=== PATIENT | female | born 1980 | race Caucasian/White ===

== ENCOUNTER 2017-08-22 14:57 | Emergency (ER) | payer BC, OTHER ==
[2017-08-22] MEDS ORDERED: ONDANSETRON *ODT* 4 MG TABLET SL ONE (15:08)
--- NOTE | 2017-08-22 15:13 | PDOC ---
Rapid Medical Evaluation Time Seen by Provider: 08/22/17 15:06 Medical Evaluation: Allergies Allergy/AdvReac Type Severity Reaction Status Date / Time No Known Drug Allergies Allergy Verified 07/16/16 22:29 08/22/17 15:07 The patient presents with a chief complaint of: Sent by doctor. Hx of ovarian cysts. Had a lot of vaginal bleeding. Feels light headed, fevers, chills. Fever vs bleeding symptoms I have performed a brief in-person evaluation of the pt: Pertinent physical exam findings: afebrile, TTP LLQ, suprapubic region, RLQ I have ordered the following:CBC, CMP, PT/INr, Type and Screen influenza, zofran The patient will proceed to the ED for further evaluation. Discharge Disposition - Referrals Referrals: Carrie Maurice [Primary Care Provider] - - Patient Instructions - Post Discharge Activity
[2017-08-22 15:14] VITALS: BP 137/93; PULSE 79; TEMP 98.5; BMI 21.4
[2017-08-22 15:50] LABS: BASO % 0.2 % (0-2.0); EOS % 0.6 % (0-4.5); HEMATOCRIT 41.1 % (32.4-45.2); HEMOGLOBIN 14.1 GM/dL (10.7-15.3); LYMPH % 15.5 % (8-40); MCH 31.3 pg (25.7-33.7); MCHC 34.4 g/dl (32.0-36.0); MEAN CELL VOLUME 90.9 fl (80-96); MEAN PLT VOLUME 7.8 fl (7.5-11.1); MONO % 7.1 % (3.8-10.2); NEUT % 76.6 % (42.8-82.8); PLATELET COUNT 290 K/MM3 (134-434); RBC 4.52 M/mm3 (3.60-5.2); RDW 12.8 % (11.6-15.6); WHITE BLOOD COUNT 8.4 K/mm3 (4.0-10.0)
[2017-08-22 16:02] LABS: INR 1.18 (0.82-1.09); PROTHROMBIN TIME (PATIENT) 13.3 SEC (9.98-11.88)
[2017-08-22 17:31] LABS: ALBUMIN 3.8 g/dl (3.4-5.0); ANION GAP 9 (8-16); BILIRUBIN,TOTAL 0.4 mg/dL (0.2-1.0); BLOOD UREA NITROGEN 14 mg/dL (7-18); CALCIUM 8.6 mg/dL (8.5-10.1); CHLORIDE 108 mmol/L (98-107); CO2 23 mmol/L (21-32); CREATININE 0.6 mg/dL (0.55-1.02); GLUCOSE,RANDOM 89 mg/dL (74-106); POTASSIUM 4.2 mmol/L (3.5-5.1); SGOT/AST 16 U/L (15-37); SGPT/ALT 61 U/L (12-78); SODIUM 140 mmol/L (136-145); TOT PROT 7.4 g/dl (6.4-8.2)
[2017-08-22 17:33] LABS: ALK PHOS 77 U/L (45-117)
--- NOTE | 2017-08-22 19:35 | PDOC ---
History of Present Illness - General Chief Complaint: Pain, Acute Stated Complaint: SENT BY PCP Time Seen by Provider: 08/22/17 15:06 - History of Present Illness Initial Comments: 08/22/17 19:33 37 yo F with h/o ovarian cysts who arrives from [facility] with abdominal pain. Patient reports onset of sharp, worsening, unremitting, lower abdominal over the past week, now with increased paroxysms of spasmodic, sharp pain. No identifiable triggers or alleviators. LMP 1 1/2 week ago, and a 3 days of profuse vaginal bleeding 1 week ago. Seen by [facility] [employer] physician 4 days ago and underwent transvaginal U/S with no evidence of torsion, but patient with suspected ovarian left cystic rupture based on prior interval study ( 2 months ago). Pt. reports she had option to schedule elective ovarian cystectomy. Endorses nausea without vomiting, lightheadedness, and 2 days of subjective fevers/chills . Denies dysuria, hematuria, flank pain, diarrhea, constipation, BRBPR, CP, SOB. Denies alcohol, tobacco use. PCP Dr. Carrie Maurice. Past History - Past Medical History Allergies/Adverse Reactions: Allergies Allergy/AdvReac Type Severity Reaction Status Date / Time No Known Drug Allergies Allergy Verified 08/22/17 15:07 Home Medications: Ambulatory Orders Celecoxib [Celebrex] 08/22/17 Dicyclomine HCl [Bentyl] 10 mg GT QID PRN #30 capsule 08/22/17 Gabapentin mg PO 08/22/17 Ibuprofen [Motrin -] 600 mg PO TID PRN #30 tablet 08/22/17 Imitrex - 08/22/17 Anemia: Yes Asthma: No Cancer: Yes (ovarian) Cardiac Disorders: No CVA: No COPD: No CHF: No Dementia: No Diabetes: No GI Disorders: No Disorders: No HTN: No Hypercholesterolemia: No Liver Disease: No Seizures: No Thyroid Disease: No - Surgical History Neurologic Surgery: Yes (laminectomy) - Immunization History Td Vaccination: No Immunization Up to Date: Yes - Suicide/Smoking/Psychosocial Hx Smoking Status: No Smoking History: Never smoked Have you smoked in the past 12 months: No Number of Cigarettes Smoked Daily: 0 Information on smoking cessation initiated: No Hx Alcohol Use: No Drug/Substance Use Hx: No Substance Use Type: None Review of Systems - Review of Systems Comments:: 08/22/17 19:34 GENERAL/CONSTITUTIONAL: + fever or chills. No weakness. HEAD, EYES, EARS, NOSE AND THROAT: No change in vision. No ear pain or discharge. No sore throat.- CARDIOVASCULAR: No chest pain or shortness of breath RESPIRATORY: No cough, wheezing, or hemoptysis. GASTROINTESTINAL: + Nausea and abdominal pain . No vomiting, diarrhea or constipation. GENITOURINARY: No dysuria, frequency, or change in urination. MUSCULOSKELETAL: No joint or muscle swelling or pain. No neck or back pain. SKIN: No rash NEUROLOGIC: No headache, vertigo, loss of consciousness, or change in strength/ sensation. ENDOCRINE: No increased thirst. No abnormal weight change HEMATOLOGIC/LYMPHATIC: No anemia, easy bleeding, or history of blood clots. ALLERGIC/IMMUNOLOGIC: No hives or skin allergy. *Physical Exam - Vital Signs Last Vital Signs Temp Pulse Resp BP Pulse Ox 98.5 F 79 16 137/93 99 08/22/17 15:09 08/22/17 15:09 08/22/17 15:09 08/22/17 15:09 08/22/17 15:09 - Physical Exam Comments: 08/22/17 19:34 GENERAL: Awake, alert, and fully oriented, in no acute distress HEAD: No signs of trauma, normocephalic, atraumatic EYES: PERRLA, EOMI, sclera anicteric, conjunctiva clear ENT: Hearing grossly normal, nares patent, oropharynx clear without exudates. Moist mucosa NECK: Normal ROM, supple, no lymphadenopathy, JVD, or masses LUNGS: No distress, speaks full sentences, clear to auscultation bilaterally HEART: Regular rate and rhythm, normal S1 and S2, no murmurs, rubs or gallops, peripheral pulses normal and equal bilaterally. ABDOMEN: Suprpapubic ttp. Neg CVA ttp. Soft, normoactive bowel sounds. No guarding, no rebound. No masses. Neg rigidity. EXTREMITIES : Normal inspection, Normal range of motion, no edema. No clubbing or cyanosis. SKIN: Warm, Dry, normal turgor, no rashes or lesions noted. ED Treatment Course - LABORATORY CBC & Chemistry Diagram: 08/22/17 15:32 08/22/17 15:32 - ADDITIONAL ORDERS Additional order review: Laboratory Results 08/22/17 08/22/17 08/22/17 15:32 15:32 15:32 PT with INR 13.30 H INR 1.18 H Sodium 140 Potassium 4.2 Chloride 108 H Carbon Dioxide 23 Anion Gap 9 BUN 14 Creatinine 0.6 Creat Clearance w eGFR > 60 Random Glucose 89 Calcium 8.6 Total Bilirubin 0.4 AST 16 ALT 61 Alkaline Phosphatase 77 Total Protein 7.4 Albumin 3.8 Beta HCG, Quant < 1.0 Blood Type O POSITIVE Antibody Screen Negative 08/22/17 15:32 Influenza Types A,B Antigen ([facility]) - Preliminary Nasopharyngeal Swab - Preliminary 08/22/17 15:32 RBC 4.52 MCV 90.9 MCHC 34.4 RDW 12.8 MPV 7.8 Neutrophils % 76.6 D Lymphocytes % 15.5 D Monocytes % 7.1 Eosinophils % 0.6 Basophils % 0.2 - Medications Given in the ED: ED Medications Discontinued Medications Generic Name Dose Route Start Last Admin Trade Name Freq PRN Reason Stop Dose Admin Ondansetron HCl 4 mg 08/22/17 15:08 08/22/17 15:32 Zofran Odt - SL 08/22/17 15:09 4 mg ONCE ONE Administration Medical Decision Making - Medical Decision Making 08/22/17 20:08 37 yo F with h/o ovarian cysts who arrives from [facility] acute onset of sharp, worsening, unremitting, lower abdominal over the past week, now with increased paroxysms of spasmodic, sharp pain. No identifiable triggers or alleviators. LMP 1 1/2 week ago, and 3 days of profuse vaginal bleeding 1 week ago. Seen by [facility] physician 4 days ago and underwent transvaginal U/S with no evidence of torsion, but patient with suspected ovarian left cystic rupture based on prior interval study ( 2 months ago). Endorses nausea without vomiting, lightheadedness, and 2 days of subjective fevers/chills . Denies dysuria, hematuria, flank pain, diarrhea, constipation, BRBPR, CP, SOB. Denies alcohol, tobacco use. Physical exam with surpapubic ttp. Neg CVA ttp. Patient HDS. Location of abdominal pain and history consistent with cystitis. Will also consider ovarian torsion given h/o multiple ovarian cysts. DDx: Cysitis, ovarian torsion, appendicitis E CBC, CMP, PT/INr, Type and Screen influenza, zofran ED Course: CBC, CMP: Unremarkable Toradol, IV NS 08/22/17 23:45 CBC, CMP: Unremarkable UA: Neg Transvaginal U/S doppler: No evidence of torsion Pt. pain improved with Hydromorphone 0.5 mg. Stable for d/c with return precautions. Bentyl and Motrin sent to pharmacy. Advised to f/u with [facility]. 0 *DC/Admit/Observation/Transfer Diagnosis at time of Disposition: Ovarian cyst Qualifiers: Laterality: bilateral Qualified Code(s): N83.201 - Unspecified ovarian cyst, right side; N83.202 - Unspecified ovarian cyst, left side; N83.202 - Unspecified ovarian cyst, left side Abdominal pain Qualifiers: Abdominal location: lower abdomen, unspecified Qualified Code(s): R10.30 - Lower abdominal pain, unspecified - Discharge Dispostion Disposition: HOME Condition at time of disposition: Stable Admit: No - Prescriptions Prescriptions: Dicyclomine HCl [Bentyl] 10 mg GT QID PRN #30 capsule PRN Reason: Pain Ibuprofen [Motrin -] 600 mg PO TID PRN #30 tablet PRN Reason: Pain - Referrals Referrals: Carrie Maurice [Primary Care Provider] - - Patient Instructions Printed Discharge Instructions: DI for Ovarian Cyst Additional Instructions: Please return to the emergency department with any new or worsening symptoms or concerns. Please follow up with your [employer] physician within one week. Please take Bentyl and Motrin as prescribed. - Post Discharge Activity - Attestations Physician Attestion: 08/22/17 23:48 I attest to the information provided in this note.
[2017-08-22] MEDS ORDERED: morphine CARPU-JECT 2 MG/1 ML DISP.SYRIN IVPUSH ONE (20:03)
[2017-08-22] MEDS ORDERED: ONDANSETRON 4 MG/2 ML VIAL IVPUSH ONE (20:03)
[2017-08-22] MEDS ORDERED: ONDANSETRON 4 MG/2 ML VIAL ONE (20:16)
[2017-08-22] MEDS ORDERED: SODIUM CHLORIDE 1,000 ML IV STA (20:19)
[2017-08-22] MEDS ORDERED: KETOROLAC TROMETHAMINE 30 MG/1 ML VIAL IVPUSH ONE (20:19)
[2017-08-22] MEDS ORDERED: KETOROLAC TROMETHAMINE 30 MG/1 ML VIAL ONE (20:20)
--- NOTE | 2017-08-22 21:06 | PDOC ---
Attending Attestation - HPI HPI: 08/22/17 21:46 The patient is a 37 year old female with a significant PMH of ovarian cysts who presents to the emergency department after being sent by her PCP for evaluation of 1 week of sharp, unremitting lower abdominal pain and a 3 day episode of vaginal bleeding 1 week ago. Patient also reports subjective fevers and chills with associated lightheadedness and nausea. She denies diarrhea or constipation. She denies dysuria or hematuria. Allergies: NKDA PCP: Dr. Carrie Maurice <Rock Liriano - Last Filed: 08/22/17 21:46> - Resident Resident Name: Levi Ott - ED Attending Attestation I have performed the following: I have examined & evaluated the patient, The case was reviewed & discussed with the resident, I agree w/resident's findings & plan, Exceptions are as noted - Physicial Exam PE: 08/22/17 23:41 *Physical Exam General Appearance: Yes: Appropriately Dressed. No: Apparent Distress, Intoxicated HEENT: positive: EOMI, PATSY, Normal ENT Inspection, Normal Voice, TMs Normal, Pharynx Normal. negative: Pale Conjunctivae, Photophobia, Scleral Icterus (R), Scleral Icterus (L) Neck: positive: Trachea midline, Normal Thyroid, Supple. negative: Tender, Rigid, Carotid bruit, Stridor, Lymphadenopathy (R), Lymphadenopathy (L), Thyromegaly Respiratory/Chest: positive: Lungs Clear, Normal Breath Sounds. negative: Chest Tender, Respiratory Distress, Accessory Muscle Use, Labored Respiration, RES, Crackles, Rales, Rhonchi, Stridor, Wheezing, Dullness Cardiovascular: positive: Regular Rhythm, Regular Rate, S1, S2. negative: Edema , JVD, Murmur, Bradycardia, Tachycardia Vascular Pulses: Dorsalis-Pedis (R): 2+, Doralis-Pedis (L): 2+ Gastrointestinal/Abdominal: positive: Normal Bowel Sounds, Flat, Soft. negative : Tender, Organomegaly, Pulsatile Mass, Increased Bowel Sounds, Decreased BS, Distended, Guarding, Rebound, Hernia, Hepatomegaly, Spleenomegaly Lymphatic: negative: Adenopathy, Tenderness Musculoskeletal: positive: Normal Inspection. negative: CVA Tenderness, Decreased Range of Motion Extremity: positive: Normal Capillary Refill, Normal Inspection, Normal Range of Motion, Pelvis Stable. negative: Tender, Pedal Edema, Swelling, Erythema Integumentary: positive: Normal Color, Dry, Warm. negative: Cyanotic, Erythema , Jaundice, Rash Neurologic: positive: detail technician II-XII NML intact, Fully Oriented, Alert, Normal Mood/ Affect, Motor Strength 5/5. negative: EOM Palsy, Facial Droop, Sensory Deficit - Medical Decision Making 08/22/17 23:42 Pt was treated and released. <Darrian Recinos - Last Filed: 08/22/17 23:43>
[2017-08-22 21:21] LABS: HCG,QUALITATIVE URINE NEGATIVE
[2017-08-22 21:22] LABS: URINE APPEARANCE SLCLOUDY; URINE BILIRUBIN NEGATIVE (NEGATIVE); URINE BLOOD NEGATIVE (NEGATIVE); URINE COLOR AMBER; URINE GLUCOSE (UA) 2+ (NEGATIVE); URINE KETONE NEGATIVE (NEGATIVE); URINE LEUK ESTERASE TRACE (NEGATIVE); URINE NITRITE NEGATIVE (NEGATIVE); URINE PROTEIN 1+ (NEGATIVE); URINE UROBILINOGEN NEGATIVE mg/dL (0.2-1.0)
[2017-08-22 21:26] LABS: EPI CELLS MODERATE /HPF (FEW); URINE BACTERIA MODERATE /hpf (NONE SEEN); URINE HYALINE CAST 2 /lpf; URINE MUCUS MANY
[2017-08-22] MEDS ORDERED: HYDROmorphone HCL CARPU-JECT 1 MG/1 ML DISP.SYRIN IVPUSH ONE (21:42)
[2017-08-22] MEDS ORDERED: HYDROmorphone HCL CARPU-JECT 2 MG/1 ML DISP.SYRIN ONE (21:56)
== END 2017-08-23 00:10 | disposition home or self-care (01) ==
LOC: JER 14:57
PROC: 3E033NZ Introduction of Analgesics, Hypnotics, Sedatives into Peripheral Vein, Percutaneous Approach (ICD-10-PCS; principal; 2017-08-22)
PROC: 3E0333Z Introduction of Anti-inflammatory into Peripheral Vein, Percutaneous Approach (ICD-10-PCS; 2017-08-22)
PROC: 3E033GC Introduction of Other Therapeutic Substance into Peripheral Vein, Percutaneous Approach (ICD-10-PCS; 2017-08-22)
DX: N83.202 Unspecified ovarian cyst, left side (principal); N83.201 Unspecified ovarian cyst, right side
CPT/HCPCS: 36415; 76830-TC; 80053; 81003; 81015; 84702; 84703; 85025; 85610; 86850; 86900; 86901; 87804; 99282-25

== ENCOUNTER 2023-02-02 11:28 | Emergency (ER) | payer OTHER ==
[2023-02-02 11:53] VITALS: TEMP 98.2; BMI 22.3
[2023-02-02] MEDS ORDERED: SODIUM CHLORIDE 1,000 ML IV STA (13:04)
[2023-02-02] MEDS ORDERED: PHENAZOPYRIDINE HCL 100 MG TABLET (FP) PO ONE (13:04)
[2023-02-02] MEDS ORDERED: PHENAZOPYRIDINE HCL 100 MG TABLET (FP) ONE (13:07)
[2023-02-02 13:09] LABS: PH,URINE 7.5 (5.0-8.0); URINE APPEARANCE CLEAR; URINE BILIRUBIN NEGATIVE (NEGATIVE); URINE COLOR YELLOW; URINE GLUCOSE (UA) NEGATIVE (NEGATIVE); URINE KETONE NEGATIVE (NEGATIVE); URINE LEUK ESTERASE NEGATIVE (NEGATIVE); URINE NITRITE NEGATIVE (NEGATIVE); URINE PROTEIN NEGATIVE (NEGATIVE); URINE UROBILINOGEN 0.2 mg/dL (0.2-1.0)
[2023-02-02 13:13] LABS: BASO % 0.8 % (0-2.0); EOS % 6.1 % (0-4.5); HEMATOCRIT 35.1 % (32.4-45.2); HEMOGLOBIN 11.6 GM/dL (10.7-15.3); LYMPH % 27.3 % (8-40); MCH 30.5 pg (25.7-33.7); MCHC 33.2 g/dl (32.0-36.0); MEAN CELL VOLUME 91.9 fl (80-96); MEAN PLT VOLUME 7.9 fl (7.5-11.1); MONO % 8.6 % (3.8-10.2); NEUT % 57.2 % (42.8-82.8); PLATELET COUNT 260 10^3/uL (134-434); RBC 3.82 M/mm3 (3.60-5.2); RDW 13.8 % (11.6-15.6); WHITE BLOOD COUNT 4.9 K/mm3 (4.0-10.0)
[2023-02-02 13:15] LABS: INR 0.98 (0.83-1.09); PROTHROMBIN TIME (PATIENT) 11.4 SEC (9.7-13.0)
[2023-02-02 13:17] LABS: ACTIVATED PTT 33.6 SECONDS (25.2-36.5)
[2023-02-02 13:44] LABS: POTASSIUM 3.9 mmol/L (3.5-5.1)
[2023-02-02 13:46] LABS: BLOOD UREA NITROGEN 15.6 mg/dL (7-18); CALCIUM 9.3 mg/dL (8.5-10.1)
[2023-02-02 13:47] LABS: ALBUMIN 4.2 g/dl (3.4-5.0)
[2023-02-02 13:50] LABS: CREATININE 0.7 mg/dL (0.55-1.3)
[2023-02-02 13:51] LABS: BILIRUBIN,TOTAL 0.2 mg/dL (0.2-1); TOT PROT 7.3 g/dl (6.4-8.2)
[2023-02-02] MEDS ORDERED: ONDANSETRON 4 MG/2 ML VIAL IVPUSH ONE (14:00)
[2023-02-02] MEDS ORDERED: ONDANSETRON 4 MG/2 ML VIAL ONE (14:04)
[2023-02-02] MEDS ORDERED: ACETAMINOPHEN 1000 MG/100 ML BAG IVPB ONE (16:16)
[2023-02-02] MEDS ORDERED: MENTHOL/PHENOL 1 EACH UD MM PRN (16:18)
[2023-02-02] MEDS ORDERED: ACETAMINOPHEN INJECTION 100 ML IVPB ONE (16:30)
[2023-02-02] MEDS ORDERED: BENZOCAINE/MENTH/CETYLPYRD CL 1 EACH LOZENGE MM ONE (16:31)
[2023-02-02] MEDS ORDERED: IBUPROFEN 600 MG TABLET (FP) PO ONE ×2 (17:21→17:29)
[2023-02-02] MEDS ORDERED: FLUCONAZOLE 150 MG TABLET PO ONE ×2 (20:43→20:52)
[2023-02-02] MEDS ORDERED: METOCLOPRAMIDE HCL INJECTION 10 MG/2 ML VIAL IVPB ONE (20:44)
[2023-02-02] MEDS ORDERED: METOCLOPRAMIDE HCL INJECTION 10 MG/2 ML VIAL ONE (20:52)
[2023-02-02 23:10] VITALS: BP 115/72; PULSE 63; RESP 18
[2023-02-02] MEDS ORDERED: PSEUDOEPHEDRINE HCL 60 MG TABLET PO SCH (23:30)
== END 2023-02-03 00:33 | disposition home or self-care (01) ==
LOC: JER 11:28
PROC: 3E033GC Introduction of Other Therapeutic Substance into Peripheral Vein, Percutaneous Approach (ICD-10-PCS; principal; 2023-02-02)
PROC: 3E033GC Introduction of Other Therapeutic Substance into Peripheral Vein, Percutaneous Approach (ICD-10-PCS; 2023-02-02)
PROC: 3E0337Z Introduction of Electrolytic and Water Balance Substance into Peripheral Vein, Percutaneous Approach (ICD-10-PCS; 2023-02-02)
DX: R04.2 Hemoptysis (principal); J01.90 Acute sinusitis, unspecified; R06.02 Shortness of breath; R60.0 Localized edema; R10.32 Left lower quadrant pain; R30.9 Painful micturition, unspecified; R35.0 Frequency of micturition; R30.0 Dysuria
CPT/HCPCS: 36415; 71045-TC-FY; 71275-TC; 74177-TC; 80053; 81003; 84484; 84703; 85025; 85610; 85730; 87086; 93005; 93010; 93971-TC; 99285-25; Q9967